=== PATIENT | male | born 1995 | race Caucasian/White ===

== ENCOUNTER 2017-09-10 02:47 | Emergency (ER) | payer SELFPAY ==
[2017-09-10] MEDS ORDERED: Acetaminophen/HYDROcodone 325-5 MG Tab PO ONE (03:03)
[2017-09-10] MEDS ORDERED: Cephalexin 250 MG Cap PO ONE (03:04)
--- NOTE | 2017-09-10 03:10 | EDM.PDOC ---
ED HPI GENERAL MEDICAL PROBLEM - General Chief Complaint: Upper Extremity Injury/Pain Stated Complaint: CUT OFF TIP OF FINGER Time Seen by Provider: 09/10/17 03:05 Source of Information: Reports: Patient History Limitations: Reports: No Limitations - History of Present Illness INITIAL COMMENTS - FREE TEXT/NARRATIVE: pt was working at [facility] [employer] and the tip of his left middle finger was cut off. This did not involve the bone. He has the whole tip exposed and there is a question whether he might need a graft to the site. 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(s) - Related Data Allergies Allergy/AdvReac Type Severity Reaction Status Date / Time No Known Allergies Allergy Verified 09/10/17 03:08 Home Meds: Home Meds NK [No Known Home Meds] 09/10/17 [History] Review of Systems - Review of Systems Review Of Systems: See Below Constitutional: Reports: No Symptoms Eyes: Reports: No Symptoms Ears: Reports: No Symptoms Nose: Reports: No Symptoms Mouth/Throat: Reports: No Symptoms Respiratory: Reports: No Symptoms Cardiovascular: Reports: No Symptoms GI/Abdominal: Reports: No Symptoms Genitourinary: Reports: No Symptoms Musculoskeletal: Reports: Other ( tip of the left middle finger was cut off ) Skin: Reports: No Symptoms ED EXAM, GENERAL - Physical Exam Exam: See Below Free Text/Narrative:: pt arrived with the tip of his left middle finger cut off. Exam Limited By: No Limitations General Appearance: Alert, Anxious Extremities: Other ( the tip of the left middle finger was cut off. This did not involve the bone. This would be such that a graft might be needed. ) Neurological: Alert, Oriented Course - Vital Signs Last Recorded V/S: Last Vital Signs Temp 36.9 C 09/10/17 03:12 Pulse 111 H 09/10/17 03:12 Resp 13 09/10/17 03:12 BP 131/83 09/10/17 03:12 Pulse Ox 96 09/10/17 03:12 - Orders/Labs/Meds Meds: Medications Discontinued Medications Generic Name Dose Route Start Last Admin Trade Name Freq PRN Reason Stop Dose Admin Hydrocodone Bitart/Acetaminophen 1 tab 09/10/17 03:03 09/10/17 03:15 Novelty 325-5 Mg PO 09/10/17 03:04 Not Given ONETIME ONE Cephalexin 500 mg 09/10/17 03:04 09/10/17 03:15 Keflex PO 09/10/17 03:05 500 mg ONETIME ONE Administration - Re-Assessments/Exams Free Text/Narrative Re-Assessment/Exam: 09/10/17 03:10 pt was given keflex 500mg nd norco 5/325. He will rturn to see Dr mcfadden. 09/12/17 07:[address] Jonas at the clinic to see if he needs a graft or if this can just granulate in. He is on keflex for any possible infection. Departure - Departure Time of Disposition: 03:11 Disposition: Home, Self-Care 01 Condition: Fair Clinical Impression: Laceration - Discharge Information Instructions: Laceration Care, Adult Referrals: PCP,None [Primary Care Provider] - Forms: ED Department Discharge Care Plan Goals: keflex 500mg tid, norco 5/325 q6h prn for pain, will discuss with Dr Jonas regarding the need for a graft. After discusing this with Dr Jonas he will see the pt in the clinic and the present dressing will be left in place.
== END 2017-09-10 03:35 | disposition home or self-care (01) ==
LOC: JP.ED 02:47
DX: S61.213A Laceration without foreign body of left middle finger without damage to nail, initial encounter (principal); W31.9XXA Contact with unspecified machinery, initial encounter; Y99.0 Civilian activity done for income or pay
CPT/HCPCS: 99283; A9270